=== PATIENT | male | born 1975 | race Caucasian/White ===

== ENCOUNTER 2017-03-05 19:34 | Emergency (ER) | payer MEDICARE, MEDICAID ==
[~2017-03-05] VITALS: Ht 177.8 cm; Wt 82.0 kg
[2017-03-05] MEDS ORDERED: HYDROCODONE/ACETAMINOPHEN 5/325MG TABLET PO ONE (20:15)
[2017-03-05] MEDS ORDERED: BACITRACIN ZINC OINT UDPKT TOP ONE (20:30)
[2017-03-05] MEDS ORDERED: LIDOCAINE HCL 1%/EPI 1:200,000 30 ML VIAL MC ONE (20:30)
[2017-03-05 20:45] LABS: PROTHROMBIN TIME 10.7 sec (9.4-11.6)
[2017-03-05] MEDS ORDERED: HYDROCODONE/ACETAMINOPHEN 10/325MG TABLET PO ONE (21:00)
[2017-03-05 21:05] VITALS: BP 129/87
== END 2017-03-05 22:38 | disposition home or self-care (01) ==
LOC: ER 19:34
DX: S01.81XA Laceration without foreign body of other part of head, initial encounter (principal); Z85.01 Personal history of malignant neoplasm of esophagus; V29.9XXA Motorcycle rider (driver) (passenger) injured in unspecified traffic accident, initial encounter; Y93.55 Activity, bike riding; Y92.89 Other specified places as the place of occurrence of the external cause; Y99.8 Other external cause status
CPT/HCPCS: 12013; 36415; 70450; 70486; 85610; 99285

== ENCOUNTER 2017-03-08 11:29 | Emergency (ER) | payer MEDICARE, MEDICAID ==
[~2017-03-08] VITALS: Ht 180.3 cm; Wt 86.0 kg
[2017-03-08 14:00] VITALS: BP 124/86
== END 2017-03-08 14:57 | disposition home or self-care (01) ==
LOC: ER 14:25
DX: Z48.00 Encounter for change or removal of nonsurgical wound dressing (principal)
CPT/HCPCS: 99281

== ENCOUNTER 2017-03-12 17:44 | Emergency (ER) | payer MEDICARE, MEDICAID ==
[~2017-03-12] VITALS: Ht 180.3 cm; Wt 132.0 kg
[2017-03-12 18:55] VITALS: BP 121/80
[2017-03-12] MEDS ORDERED: BACITRACIN ZINC OINT UDPKT TOP ONE (22:45)
== END 2017-03-12 23:04 | disposition home or self-care (01) ==
LOC: ER 18:02
DX: T81.4XXA Infection following a procedure, initial encounter (principal); S01.80XD Unspecified open wound of other part of head, subsequent encounter; X58.XXXD Exposure to other specified factors, subsequent encounter
CPT/HCPCS: 99283